=== PATIENT | female | born 1980 ===

== ENCOUNTER 2018-04-15 19:36 | Emergency (ER) | payer OTHER ==
[2018-04-15 19:50] VITALS: O2SAT 100
[2018-04-15] MEDS ORDERED: Albuterol-Ipratrop 3 mg / 0.5 (3 ml) UD INH STA (20:47)
[2018-04-15] MEDS ORDERED: Albuterol 0.083% Inhal Sol (2.5 mg/3 mL) UD INH STA (20:47)
--- NOTE | 2018-04-15 21:03 | ED PDOC ---
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 denies: Fever, Chills, Productive Cough, Dizziness Additional Complaint(s): Teresa Pike is a 38 year old female, with no significant past medical history, who presents to the emergency department for evaluation of shortness of breath, congestion, and chest tightness described as pressure for the last x2 days. Patient took no medications prior to arrival. She denies any fever, chills, cough, nausea, vomiting, diarrhea, headache, dizziness, sick contacts, ear pain, throat pain, abdominal pain or recent travel. She denies previous history of cardiac or respiratory problems. No further medical complaints. LMP currently PMD: [facility]. Past Medical History Reviewed: Historical Data, Nursing Documentation, Vital Signs Vital Signs: Last Vital Signs Temp 98.2 F 04/16/18 00:40 Pulse 78 04/16/18 00:40 Resp 14 04/16/18 00:40 BP 122/62 04/16/18 00:40 Pulse Ox 100 04/19/18 01:27 - Medical History PMH: No Chronic Diseases - Surgical History Surgical History: - Family History Family History: States: Unknown Family Hx - Social History Current smoker - smoking cessation education provided: No Alcohol: None Drugs: Denies - Home Medications Home Medications: Ambulatory Orders Medication Instructions Recorded Albuterol Sulfate [Ventolin Hfa] 1 puff IH Q4 PRN #1 unit 04/15/18 Phenylephrine/Dm/Acetaminop/GG 2 each PO Q6 #30 tablet 04/15/18 [Sudafed PE Pressure+Pain+Cold] - Allergies Allergies/Adverse Reactions: Allergies Allergy/AdvReac Type Severity Reaction Status Date / Time No Known Allergies Allergy Verified 04/15/18 19:46 Review of Systems ROS Statement: Except As Marked, All Systems Reviewed And Found Negative Constitutional: Negative for: Fever, Chills ENT: Positive for: Nose Congestion. Negative for: Ear Pain, Throat Pain Cardiovascular: Positive for: Chest Pain (tightness ) Respiratory: Positive for: Shortness of Breath. Negative for: Cough Gastrointestinal: Negative for: Nausea, Vomiting, Abdominal Pain, Diarrhea Neurological: Negative for: Headache, Dizziness Physical Exam - Reviewed Nursing Documentation Reviewed: Yes Vital Signs Reviewed: Yes - Physical Exam Comments: GENERAL APPEARANCE: Patient is awake, alert, not toxic appearing, in no acute distress. Resting comfortably. SKIN: Warm, dry; (-) cyanosis; (-) petechiae, (-) rash. EYES: (-) conjunctival pallor, (-) icterus. ENMT: TMs (-) erythema, (-)bulging. Pharynx: clear, uvula midline (-) tonsillar erythema, (-) tonsillar exudate. Airway patent, (-) stridor. Mucous membranes moist. NECK: Supple, FROM (-) stiffness, (-) meningismus, (-) lymphadenopathy. CHEST AND RESPIRATORY: (-) retractions, (-) rales, (-) rhonchi, (-) wheezes; breath sounds equal bilaterally. Respirations even and nonlabored. HEART AND CARDIOVASCULAR: (-) irregularity ABDOMEN AND GI: Soft; (-) tenderness; (-) distention, (-) guarding EXTREMITIES: (-) deformity; distal pulses are present. NEURO AND PSYCH: Mental status as above. grinder needle tip grossly intact. EOMI and painless. (-) facial asymmetry (-) aphasia. Gait: steady. Speech: clear. - Laboratory Results Result Diagrams: 04/15/18 21:15 04/15/18 21:15 Urine POC: Negative - ECG O2 Sat by Pulse Oximetry: 100 (RA) Pulse Ox Interpretation: Normal Medical Decision Making Medical Decision Making: Time: 20:15 Initial Impression: Shortness of breath, chest discomfort Initial Plan: --EKG --BMP --Troponin I --Urine --Urine dipstick --CBC w/ differential --D Dimer --PTT --PT --Chest two views (PA/LAT) [RAD] --Albuterol 0.083% Inhal Sophie 2.5 mg INH --Duoneb 3 ml INH --Toradol 30 mg IVP --Reevaluation Upreg: Negative 2119 CXR: no acute disease as read by María Elena TAPIA. Patient notified official radiology read will be available within 24 hours and that she would be notified of any discrepancies via phone. EKG: NSR@ 63bpm (-) ST elevation, QTc 462. 2245 Labs reviewed and grossly unremarkable. D-Dimer <200 Troponin: <0.01 On re-evaluation, patient reports improvement of symptoms. On exam, patient remains AAOx3, in no acute distress. Lungs clear to auscultation, cardiac RRR, abdomen soft, non-tender, repeat neuro exam shows no focal findings. VSS, stable for discharge. Lab/Diagnostic results d/w the patient in great detail. Diagnosis of SOB, chest tightness d/w the patient. Based on history, exam and diagnostic results, plan will be for outpatient follow up. Patient instructed to follow-up with pmd / referral provided / the clinic in 1- 2 days without fail. Advised to take medication as prescribed. Return to the emergency room at any time for any new or worsening symptoms. Patient states she fully agrees with and understands discharge instructions. States that she agrees with the plan and disposition. Verbalized and repeated discharge instructions and plan. I have given the patient opportunity to ask any additional questions. ----- Scribe Attestation: Documented by Shaka Barrios, acting as a scribe for Jen Ring PA-C. Provider Scribe Attestation: All medical record entries made by the Scribe were at my direction and personally dictated by me. I have reviewed the chart and agree that the record accurately reflects my personal performance of the history, physical exam, medical decision making, and the department course for this patient. I have also personally directed, reviewed, and agree with the discharge instructions and disposition. Disposition - Clinical Impression Clinical Impression: Chest tightness, Congestion of upper airway, SOB (shortness of breath) - Patient ED Disposition Is Patient to be Admitted: No Counseled Patient/Family Regarding: Studies Performed, Diagnosis, Need For Followup, Rx Given - Disposition Referrals: [facility] [Outside] Disposition: Routine/Home Disposition Time: 23:09 Condition: STABLE Additional Instructions: La atencin mdica de emergencia que recibi hoy se dirigi a los sntomas agudos de presentacin. Si le prescribieron algn medicamento, por favor ll josh y d gerry indicado. Sridevi sntomas pueden tardar varios louis en resolverse. Regrese al Departamento de Emergencia en cualquier momento si los sntomas empeoran, no mejoran o si surge algn otro problema. Comunquese con barton mdico en 2 louis para myron reevaluacin y seguimiento / o llame a destinee de los mdicos / clnicas a los que sosa referido y que figura en el formulario de Informacin de visitas del paciente que se incluye en barton paquete de stephon. Lleve todos los documentos que recibi al momento del stephon junto con los medicamentos a barton visita de seguimiento. Nuestro tratamiento no puede reemplazar la atencin mdica en curso por parte de un proveedor de atencin primaria (PCP) fuera del departamento de emergencias. Prescriptions: Albuterol Sulfate [Ventolin Hfa] 1 puff IH Q4 PRN #1 unit PRN Reason: shortness of breath Phenylephrine/Dm/Acetaminop/GG [Sudafed PE Pressure+Pain+Cold] 2 each PO Q6 #30 tablet Instructions: Chest Pain, Chest Pain That Is Not Caused by the Heart (DC), Viral Upper Respiratory Infection, Adult (DC) Forms: [employer] (Greenlandic) Print Language: BENGALI - POA Present On Arrival: None Results - Lab Results Lab Results: 04/15/18 04/15/18 04/15/18 21:15 21:15 21:15 WBC 7.0 RBC 4.25 Hgb 12.2 Hct 36.6 MCV 86.1 MCH 28.7 MCHC 33.4 RDW 13.5 Plt Count 235 MPV 7.9 Neut % (Auto) 56.9 Lymph % (Auto) 35.0 [place] % (Auto) 6.9 Eos % (Auto) 0.5 Baso % (Auto) 0.7 Neut # (Auto) 4.0 Lymph # (Auto) 2.5 [place] # (Auto) 0.5 Eos # (Auto) 0.0 Baso # (Auto) 0.0 PT 12.0 INR 1.1 APTT 31.9 D-Dimer, Quantitative < 200 Sodium 140 Potassium 3.6 Chloride 103 Carbon Dioxide 25 Anion Gap 16 BUN 12 Creatinine 0.5 L Est GFR ( Amer) > 60 Est GFR (Non-Af Amer) > 60 Random Glucose 96 Calcium 9.5 Troponin I < 0.0120
[2018-04-15 21:26] LABS: BASO % 0.7 % (0.0-2.0); EOS % 0.5 % (0.0-4.0); HEMOGLOBIN 12.2 g/dL (12.0-16.0); LYMPH # 2.5 K/uL (1.0-4.3); MEAN CELL VOLUME 86.1 fl (81.0-99.0); MEAN CORPUSCULAR HEMOGLOBIN 28.7 pg (27.0-31.0); MEAN CORPUSCULAR HGB CONC 33.4 g/dL (33.0-37.0); MEAN PLATELET VOLUME 7.9 fl (7.2-11.7); MONO # 0.5 K/uL (0.0-0.8); MONO % 6.9 % (0.0-10.0); NEUT % 56.9 % (50.0-75.0); NRBC % 0.1 % (0.0-0.0); RBC 4.25 Mil/uL (3.80-5.20); RED CELL DISTRIBUTION WIDTH 13.5 % (11.5-14.5)
[2018-04-15 21:28] LABS: INR 1.1
[2018-04-15 21:31] LABS: PARTIAL THROMBOPLASTIN TIME 31.9 Seconds (25.6-37.1)
[2018-04-15 21:37] LABS: D DIMER < 200 ng/mlDDU (0-230)
[2018-04-15 21:46] LABS: BLOOD UREA NITROGEN 12 mg/dl (7-17); CALCIUM 9.5 mg/dL (8.4-10.2); GFR NON-AFRICAN AMERICAN > 60
[2018-04-16 00:41] VITALS: BP 122/62; PULSE 78; RESP 14; TEMP 98.2
--- NOTE | 2018-04-16 08:46 | RAD ---
Date of service: 04/15/2018 HISTORY: SOB, chest tightness COMPARISON: No prior. TECHNIQUE: Chest PA and lateral FINDINGS: LUNGS: No active pulmonary disease. PLEURA: No significant pleural effusion identified. No pneumothorax apparent. CARDIOVASCULAR: Normal. OSSEOUS STRUCTURES: No significant abnormalities. VISUALIZED UPPER ABDOMEN: Normal. OTHER FINDINGS: None. IMPRESSION: No acute cardiopulmonary disease appreciated.
--- NOTE | 2018-04-16 08:47 | CARD ---
APPROVED REPORT Date of service: 04/15/2018 <Conclusion> Normal sinus rhythm Normal ECG
== END 2018-04-15 23:45 | disposition home or self-care (01) ==
LOC: H.ER 19:36
DX: R07.89 Other chest pain (principal); R09.89 Other specified symptoms and signs involving the circulatory and respiratory systems
CPT/HCPCS: 71046; 80048; 81025; 84484; 85025; 85378; 85610; 85730; 93005; 96374; 99283; J1885